=== PATIENT | female | born 1965 | race Caucasian/White ===

== ENCOUNTER 2021-04-22 23:10 | Observation (INO) | payer BC ==
[~2021-04-22] VITALS: Ht 154.9 cm; Wt 64.9 kg
[2021-04-22 23:43] LABS: HEMOGLOBIN 13.6 gm/dl (12.3-15.3); RED BLOOD COUNT 4.2 M/UL (4.00-5.10); WHITE BLOOD COUNT 6.6 K/UL (4.5-11.0)
[2021-04-23 00:09] LABS: BUN/CREATININE RATIO 18 (0-10)
[2021-04-23] MEDS ORDERED: GABAPENTIN800 MG PO (06:29)
[2021-04-23] MEDS ORDERED: FENOFIBRATE150 MG PO (06:29)
[2021-04-23] MEDS ORDERED: MELOXICAM15 MG PO (06:31)
[2021-04-23] MEDS ORDERED: SIMVASTATIN20 MG PO (06:31)
[2021-04-23] MEDS ORDERED: PAROXETINE HCL40 MG PO (06:32)
[2021-04-23] MEDS ORDERED: OTEZLA30 MG PO (06:32)
[2021-04-23] MEDS ORDERED: TOPAMAX 25 MG T25 MG JT (06:33)
[2021-04-23] MEDS ORDERED: VAZALORE81 MG PO (06:36)
== END 2021-04-23 17:15 | disposition home or self-care (01) ==
LOC: ER1 23:10 → CDU 04-23 02:59 → MED SURG 4 04-23 02:59 → CDU 04-23 02:59 → MED SURG 4 04-23 07:00
PROVIDERS: Physician Assistant Medical; ADMIT Internal Medicine
DX: R07.89 Other chest pain (principal); M79.7 Fibromyalgia; G89.29 Other chronic pain; M54.9 Dorsalgia, unspecified; E87.6 Hypokalemia; G43.909 Migraine, unspecified, not intractable, without status migrainosus; I35.1 Nonrheumatic aortic (valve) insufficiency; R94.31 Abnormal electrocardiogram [ECG] [EKG]; Z20.822 Contact with and (suspected) exposure to COVID-19; Z82.49 Family history of ischemic heart disease and other diseases of the circulatory system
CPT/HCPCS: ECHO; 36415; 71045; 80053; 80061; 82150; 82550; 82553; 83036; 83690; 83735; 83874; 84100; 84439; 84443; 84484; 84550; 85025; 85379; 86140; 93005; 93306; 96374; 96375; 96376; 99285; G0378; J2270; J2405; U0002